=== PATIENT | female | born 1955 | race Caucasian/White ===

== ENCOUNTER 2017-03-03 07:07 | Day surgery (SDC) | payer BC ==
[2017-02-27 13:22] LABS: HEMATOCRIT 42.6 % (36.0-48.0)
[2017-02-27 13:36] LABS: BUN (BLOOD UREA NITROGEN) 10 MG/DL (6-23); CHLORIDE, SERUM 105 MMOL/L (96-112); CREATININE 0.96 MG/DL (0.55-1.02); GFR AFRICAN AMERICAN 73 ML/MIN (>=60); GFR NON AFRICAN AMERICAN 63 ML/MIN (>=60)
[2017-02-27 13:45] LABS: CO2 (CARBON DIOXIDE) 24 MMOL/L (24-34); GLUCOSE, SERUM 109 MG/DL (60-99); SODIUM, SERUM 137 MMOL/L (135-148)
[2017-02-27 15:37] LABS: BASOPHILS 0 %; EOSINOPHILS 1.6 %; EOSINOPHILS ABSOLUTE 0.16 10/3/uL (0.0-0.53); IMMATURE GRANULOCYTES 0.4 %; IMMATURE GRANULOCYTES ABSOLUTE 0.04 10/3/uL (0.0-0.11); LYMPHOCYTES 9.4 %; LYMPHOCYTES ABSOLUTE 0.94 10/3/uL (0.67-4.30); MEAN CORPUSCULAR HEMOGLOB 30.7 pg (26.0-34.0); MEAN PLATELET VOLUME 10.5 fL (9.2-13.0); MONOCYTES 5.3 %; MONOCYTES ABSOLUTE 0.53 10/3/uL (0.21-1.20); NEUTROPHILS 83.3 %; NEUTROPHILS ABSOLUTE 8.32 10/3/uL (2.02-8.40); PLATELET COUNT 231 10/3/uL (150-400); RBC DISTRIBUTION WIDTH 12.9 % (12.0-16.0)
[2017-02-27 15:42] LABS: MEAN CORPUS HGB CONC 33.3 g/dL (32.0-36.0); MEAN CORPUSCULAR VOLUME 92.1 fL (80-100); RED CELL COUNT 4.56 10/6/uL (4.0-5.6)
[2017-02-27 15:43] LABS: MANUAL DIFF NO %
--- NOTE | ~2017-03-03 | OP ---
Record Of Operation [facility] [address] [place]. [address] NAME: CLAU RHOADES : 53 STATUS : [facility]#: [id number] AGE: 61 ADM/REG DATE : 03/03/17 MR#: [id number] REPORT SERV DATE: 03/03/17 DICTATED BY: Leanne SUAREZ DATE: 03/03/17 REPORT STATUS : Draft TRANSCRIBED BY: MODL DATE: 03/03/17 DATE OF PROCEDURE: 03/03/2017 PREOPERATIVE DIAGNOSIS: Right ureteral obstruction due to metastatic breast cancer with chronic indwelling double-J stent. POSTOPERATIVE DIAGNOSIS: Right ureteral obstruction due to metastatic breast cancer with chronic indwelling double-J stent. PROCEDURES: Cystoscopy, cystolitholapaxy (small), removal of right double-J stent, right retrograde pyelogram, placement of right double-J stent. SURGEON: Leanne Suarez M.D. ANESTHESIA: General. COMPLICATIONS: Difficult stent removal. DRAINS: 7-Czech x 22 cm Contour double-J stent. BRIEF HISTORY: Ms Rhoades is a 61-year-old white female with metastatic breast cancer, who developed right ureteral obstruction. She developed right ureteral obstruction in August 2016. I changed her stent on 11/15/2016 and it had some encrustations then. Due to her therapy, she did not come in as planned for stent exchange, but developed urgency with incontinence around the first of January. My suspicion was this was probably a right ureteral stent. We have arranged for stent exchange. We discussed the risks of bleeding, infection, anesthesia, injury to adjacent organs, inability to access the ureter, need for continued monitoring and probable earlier stent exchange . There were no unanswered questions. DESCRIPTION OF PROCEDURE: Under excellent general anesthesia, the patient was prepped and draped in a standard lithotomy position. Cystoscopy was performed with the 30-degree lens and revealed a stent emanating from the right orifice. There was typical stent reaction and considerable encrustation on the distal end. I used the grasper to remove this stone and was unable to remove the stent until significant stone had been broken off and subsequently removed. This was equivalent to a bladder stone with manual cystolitholapaxy. Ultimately, I was able to remove enough stone from the distal coil to grasp the stent and remove it with mild difficulty. The incrustation extended up the ureter about a centimeter. I then inserted a 5-Czech open-ended catheter into the right ureter and performed a right retrograde pyelogram. There did seem to be continued mild dilatation of the collecting system, especially the upper pole. I inserted an angled wire through the 5-Czech open- ended catheter, removed the catheter, and then took a 7-Czech x 22 cm Contour double-J stent. I placed the proximal coil in the upper pole and the distal coil in the bladder. It seemed to be a reasonable fit and we will see how she does. She had some expected bleeding from the procedure. I plan to discharge Ms Rhoades as an outpatient with the following instructions. Record Of Operation [facility] [address] [facility] [place]. [address] NAME: CLAU RHOADES : 53 STATUS : [facility] PAT#: [id number] AGE: 61 ADM/REG DATE : 03/03/17 MR#: [id number] REPORT SERV DATE: 03/03/17 DICTATED BY: Leanne SUAREZ DATE: 03/03/17 REPORT STATUS : Draft TRANSCRIBED BY: PHILIP DATE: 03/03/17 DISCHARGE INSTRUCTIONS: 1. Home today. 2. Pyridium 200 mg one p.o. t.i.d. p.r.n. bladder pain, #15 with two refills. 3. Follow up in my office in two weeks to reassess symptoms. If she is much better from the incontinence standpoint, we will consider some sort of medication to reduce her risk of encrustation such as TheraLith XR and also consider more frequent stent changes. HIMANSHU/PHILIP Leanne Suarez M.D. / [phone] CC: Quoc Mendez M.D. [facility] Malik Lugo M.D.
[~2017-03-03 07:07] MED LIST: ABILIFY15 PO; ALEVE220 MG PO; ALLERGY REL1 OPH; AMOXIL500C PO; AROMASIN25 PO; ATIVAN2 MG PO; ATV1 PO; B150 PO; BEN25 PO; BUDEPRION150 MG PO; CHEMO-THERAPY INF; CIP5 PO; CO Q-10100 MG PO; COQ10100 MG OR; COSAMIN DS1 TAB; EZFE 200200 MG PO; FISH-EPA1000 MG PO; FLOMAX4 PO; HCTZ12.5 PO; IMOD PO; KLOR-CON M2020 MEQ PO; LAMICTAL ODT50 MG PO; LAMICTAL10 PO; LAMICTAL150 MG PO; LAMICTAL25 PO; LEVAQUIN5T PO; LOM PO; MAGGEL600 MG PO; METANX PO; MIRTAZAPINE7.5 MG PO; MSM500 MG PO; NORCO1 TA1 PO; OS500+D PO; OXYCOD PO; PRILO PO; PYR200 PO; REG5 PO; REM15 PO; RESTORIL30 MG PO; SYN.05 PO; TUMSROLL PO; VIT D; VITAMIN D1000 UNI1 PO; VITAMIN D31000 UNIT PO; VITC500 PO; WELL75 PO; ZOFRAN4 PO; [UNRECOGNIZED DRUG - OTHER]
[2017-05-05] MEDS ORDERED: POTASSIUM PO (15:27)
[2017-05-05] MEDS ORDERED: HARD NAILS PO (15:27)
[2017-05-05] MEDS ORDERED: [UNRECOGNIZED DRUG - OTHER] PO (15:28)
[2017-05-05] MEDS ORDERED: [UNRECOGNIZED DRUG - OTHER] PO (15:28)
[2017-05-05] MEDS ORDERED: VITA D PO (15:28)
[2017-05-05] MEDS ORDERED: ACET500CAP PO (15:29)
[2017-07-11] MEDS ORDERED: ENTOCORT3 PO (11:03)
[2017-07-11] MEDS ORDERED: UROCIT-K 5540 MG PO/LIQ (11:04)
[2017-07-11] MEDS ORDERED: THERALITH XR PO (11:07)
[2017-07-11] MEDS ORDERED: DITRO5 PO (11:10)
[2017-07-11] MEDS ORDERED: K500 PO (11:12)
[2017-07-11] MEDS ORDERED: PYR100B PO (11:14)
[2017-07-11] MEDS ORDERED: MAGOX4 PO (11:28)
[2017-07-11] MEDS ORDERED: MSM1000 MG PO (11:29)
[2017-07-11] MEDS ORDERED: FLOMAX4 PO (11:29)
[2017-07-11] MEDS ORDERED: ZOFRAN4 PO (11:30)
[2017-07-11] MEDS ORDERED: PEP20 PO (11:53)
== END 2017-03-03 12:53 | disposition home or self-care (01) ==
LOC: SDC 07:07
PROC: 0T768DZ Dilation of Right Ureter with Intraluminal Device, Via Natural or Artificial Opening Endoscopic (ICD-10-PCS; 2017-03-03)
PROC: BT1DZZZ Fluoroscopy of Right Kidney, Ureter and Bladder (ICD-10-PCS; 2017-03-03)
PROC: 0TCB8ZZ Extirpation of Matter from Bladder, Via Natural or Artificial Opening Endoscopic (ICD-10-PCS; principal; 2017-03-03 08:30)
DX: N13.5 Crossing vessel and stricture of ureter without hydronephrosis (principal); E03.9 Hypothyroidism, unspecified; F41.9 Anxiety disorder, unspecified; F31.9 Bipolar disorder, unspecified; Z88.2 Allergy status to sulfonamides; Z88.5 Allergy status to narcotic agent; Z88.8 Allergy status to other drugs, medicaments and biological substances; Z90.49 Acquired absence of other specified parts of digestive tract; Z90.710 Acquired absence of both cervix and uterus; Z90.711 Acquired absence of uterus with remaining cervical stump; Z85.3 Personal history of malignant neoplasm of breast; Z80.0 Family history of malignant neoplasm of digestive organs; Z98.890 Other specified postprocedural states; Z79.899 Other long term (current) drug therapy
CPT/HCPCS: 74420; 80048; 84132; 85025; 93005; A9270-GY; C1758; C1769; C2617; J2250; J2405; J3010; Q9967

== ENCOUNTER 2017-05-12 06:35 | Day surgery (SDC) | payer BC ==
[2017-05-07 12:37] LABS: HEMATOCRIT 38.7 % (36.0-48.0); HEMOGLOBIN 12.4 g/dL (12.0-16.0)
--- NOTE | ~2017-05-12 | OP ---
Record Of Operation [facility] [address] [place]. [address] NAME: CLAU RHOADES : 53 STATUS : [facility]#: [id number] AGE: 61 ADM/REG DATE : 05/12/17 MR#: [id number] REPORT SERV DATE: 05/12/17 DICTATED BY: Leanne SUAREZ DATE: 05/12/17 REPORT STATUS : Draft TRANSCRIBED BY: MODL DATE: 05/12/17 DATE OF PROCEDURE: 05/12/2017 PREOPERATIVE DIAGNOSIS: Right ureteral obstruction with chronic indwelling double-J stent. POSTOPERATIVE DIAGNOSIS: Right ureteral obstruction with chronic indwelling double-J stent, indeterminate left posterior bladder wall lesion. PROCEDURE: Cystoscopy, removal of right double-J stent, right retrograde pyelogram, double-J stent placement, bladder biopsy x2, fulguration, Reddy catheter placement. SURGEON: Leanne Suarez M.D. ANESTHESIA: General. COMPLICATIONS: None. DRAINS: 7-Burundian x 22 cm Contour double-J stent. BRIEF HISTORY: Ms. Rhoades is a 61-year-old white female, with a history of metastatic breast cancer, who developed right ureteral obstruction in the proximal aspect, managed with stent placement urgently 08/16/2016. Since that time, I have been changing her stent, most recently 03/03/2017. At that time, the stent had been in a little over three months, but was severely encrusted and required a cystolitholapaxy. I have suggested she and her that we probably need to change the stent every two months. The risks of bleeding, infection, anesthesia, injury to adjacent organs, inability to access ureter, place stent were discussed. She also brought up stent removal and I discussed with her that at some point in the future, we could try that under closely supervised conditions, although, she is unlikely to be able to become stent free. She has had some stent discomfort managed well with VESIcare, but her pharmacist recommended that she stop it recently, due to possible GI side effects. DESCRIPTION OF PROCEDURE: Under excellent general anesthesia, the patient was prepped and draped in standard lithotomy position. Cystoscopy was performed with a 30-degree lens, revealed a stent emanating from the right orifice. I also noticed a patch of erythema and friable tissue on the left posterior aspect of the bladder well away from her stent, while this could be stent related during a time of bladder drainage, it appeared distant enough that it could be an additional process. I used a flexible grasper to remove her stent and then placed a 5-Burundian open-ended ureteral catheter into the ureter and performed a right retrograde pyelogram. Her collecting system was reasonably decompressed. I inserted an angled Glidewire and then over the wire, placed a 7-Burundian x 22 cm Contour double-J stent, which coiled proximally and distally. I then used the rigid biopsy forceps to take two biopsies from this area of abnormal urothelium on the left side and then fulgurated these with the Bugbee electrode. I placed a 20-Burundian Reddy catheter and sent Ms. Rhoades to recovery with the following. Record Of Operation [facility] [address] [place]. [address] NAME: CLAU RHOADES : 53 STATUS : [facility] PAT#: [id number] AGE: 61 ADM/REG DATE : 05/12/17 MR#: [id number] REPORT SERV DATE: 05/12/17 DICTATED BY: Leanne SUAREZ DATE: 05/12/17 REPORT STATUS : Draft TRANSCRIBED BY: MODL DATE: 05/12/17 DISCHARGE PLAN: 1. Remove catheter today if urine clears. 2. Pyridium 200 mg one p.o. t.i.d. p.r.n. bladder pain, #15 with three refills. 3. Follow up in my office in one to two weeks to both review biopsy and results, and reassess her response to this stent, consider additional medications either anticholinergics if okayed by GI or Myrbetriq. ARNALDOD/MODL Leanne Suarez M.D. / [id number] CC: Quoc Mendez M.D. Walter Rose, M.D.
[~2017-05-12 06:35] MED LIST changes: +ACET500CAP PO; +HARD NAILS PO; +POTASSIUM PO; +VITA D PO; +[UNRECOGNIZED DRUG - OTHER] PO; +[UNRECOGNIZED DRUG - OTHER] PO
[2017-05-12 06:59] LABS: BASOPHILS 0.4 %; BASOPHILS ABSOLUTE 0.03 10/3/uL (0.0-0.16); EOSINOPHILS 6.9 %; EOSINOPHILS ABSOLUTE 0.47 10/3/uL (0.0-0.53); HEMOGLOBIN 12.2 g/dL (12.0-16.0); IMMATURE GRANULOCYTES 0.1 %; IMMATURE GRANULOCYTES ABSOLUTE 0.01 10/3/uL (0.0-0.11); LYMPHOCYTES 22.1 %; MEAN CORPUS HGB CONC 32.1 g/dL (32.0-36.0); MEAN CORPUSCULAR HEMOGLOB 28.8 pg (26.0-34.0); MEAN CORPUSCULAR VOLUME 89.8 fL (80-100); MEAN PLATELET VOLUME 9.7 fL (9.2-13.0); MONOCYTES ABSOLUTE 0.68 10/3/uL (0.21-1.20); NEUTROPHILS 60.5 %; PLATELET COUNT 169 10/3/uL (150-400); RBC DISTRIBUTION WIDTH 13.4 % (12.0-16.0); RED CELL COUNT 4.23 10/6/uL (4.0-5.6); WHITE BLOOD CELLS 6.8 10/3/uL (4.5-10.5)
[2017-05-12 07:05] LABS: MANUAL DIFF NO %
[2017-05-12 08:18] LABS: BUN (BLOOD UREA NITROGEN) 11 MG/DL (6-23); CHLORIDE, SERUM 111 MMOL/L (96-112); CO2 (CARBON DIOXIDE) 27 MMOL/L (24-34); CREATININE 0.95 MG/DL (0.55-1.02); GFR AFRICAN AMERICAN 74 ML/MIN (>=60); GFR NON AFRICAN AMERICAN 64 ML/MIN (>=60); GLUCOSE, SERUM 101 MG/DL (60-99); POTASSIUM, SERUM 4.1 MMOL/L (3.5-5.3); SODIUM, SERUM 140 MMOL/L (135-148)
[2017-07-11] MEDS ORDERED: ENTOCORT3 PO (11:03)
[2017-07-11] MEDS ORDERED: UROCIT-K 5540 MG PO/LIQ (11:04)
[2017-07-11] MEDS ORDERED: THERALITH XR PO (11:07)
[2017-07-11] MEDS ORDERED: DITRO5 PO (11:10)
[2017-07-11] MEDS ORDERED: K500 PO (11:12)
[2017-07-11] MEDS ORDERED: PYR100B PO (11:14)
[2017-07-11] MEDS ORDERED: MAGOX4 PO (11:28)
[2017-07-11] MEDS ORDERED: FLOMAX4 PO (11:29)
[2017-07-11] MEDS ORDERED: MSM1000 MG PO (11:29)
[2017-07-11] MEDS ORDERED: ZOFRAN4 PO (11:30)
[2017-07-11] MEDS ORDERED: PEP20 PO (11:53)
== END 2017-05-12 12:41 | disposition home or self-care (01) ==
LOC: SDC 06:35
PROC: BT1DZZZ Fluoroscopy of Right Kidney, Ureter and Bladder (ICD-10-PCS; 2017-05-12)
PROC: 0T768DZ Dilation of Right Ureter with Intraluminal Device, Via Natural or Artificial Opening Endoscopic (ICD-10-PCS; principal; 2017-05-12 07:45)
DX: T83.122A Displacement of indwelling ureteral stent, initial encounter (principal); N13.5 Crossing vessel and stricture of ureter without hydronephrosis; N32.9 Bladder disorder, unspecified
CPT/HCPCS: 74420; 80048; 85014; 85018; 85025; 88305; 93005; A9270-GY; C1758; C1769; C2617; J2250; J2405; J3010; Q9967

== ENCOUNTER 2017-05-19 08:24 | Day surgery (SDC) | payer BC ==
--- NOTE | ~2017-05-19 | EGD ---
EGD REPORT [facility] [address] [place] [address] NAME: BAMBI RHOADES : 53 STATUS : [facility] PAT#: [id number] AGE: 61 ADM/REG DATE : 05/19/17 MR#: [id number] REPORT SERV DATE: 05/19/17 DICTATED BY: FINA HELMS DATE: 05/19/17 REPORT STATUS : Draft TRANSCRIBED BY: [employer] DATE: 05/19/17 Endoscopy Center Patient Name: Bambi Rhoades Date of : 1955 Attending MD: FINA HELMS MD Procedure Date No Time: 05/19/2017 Procedure: Colonoscopy Indications: Clinically significant diarrhea of unexplained origin, Heme positive stool Referring MD: ROSE PATEL MD, J. P. DANIELA Medicines: as per anesthesia Complications: No immediate complications. Procedure: Pre-Anesthesia Assessment: - ASA Grade Assessment: III - A patient with severe systemic disease. After I obtained informed consent, the scope was passed under direct vision. Throughout the procedure, the patient's blood pressure, pulse, and oxygen saturations were monitored continuously. The [facility] [id number] was introduced through the anus and advanced to the cecum, identified by appendiceal orifice and ileocecal valve. The colonoscopy was performed without difficulty. The patient tolerated the procedure. The quality of the bowel preparation was adequate to identify polyps. Findings: The perianal and digital rectal examinations were normal. Internal hemorrhoids were found during endoscopy and were mild. Four biopsies were obtained in the rectum and in the ascending colon with cold forceps for histology. Impression: - Internal hemorrhoids. - Four biopsies were obtained in the rectum and in the ascending colon. Recommendation: - Await pathology results. - Repeat colonoscopy in 10 years for surveillance. Procedure Code(s): --- Professional --- 22424, Colonoscopy, flexible, proximal to splenic flexure; with biopsy, single or multiple Diagnosis Code(s): --- Professional --- K64.8, Other hemorrhoids R19.7, Diarrhea, unspecified EGD REPORT [facility] [address] [address] NAME: BAMBI RHOADES : 53 STATUS : [facility] PAT#: [id number] AGE: 61 ADM/REG DATE : 05/19/17 MR#: [id number] REPORT SERV DATE: 05/19/17 DICTATED BY: FINA HELMS. DATE: 05/19/17 REPORT STATUS : Draft TRANSCRIBED BY: [employer] DATE: 05/19/17 R19.5, Other fecal abnormalities CPT copyright 2013 [employer]. All rights reserved. The codes documented in this report are preliminary and upon button tacker review may be revised to meet current compliance requirements. FINA HELMS MD 05/19/2017 11:48 AM This report has been signed electronically. Number of Addenda: 0 Note Initiated On: 05/19/2017 11:07 AM Scope Withdrawal Time 0 hours 9 minutes 36 seconds [address] [id number]
--- NOTE | ~2017-05-19 | EGD ---
EGD REPORT [facility] [address] [place] [address] NAME: BAMBI RHOADES : 53 STATUS : [facility] PAT#: [id number] AGE: 61 ADM/REG DATE : 05/19/17 MR#: [id number] REPORT SERV DATE: 05/19/17 DICTATED BY: FINA HELMS DATE: 05/19/17 REPORT STATUS : Draft TRANSCRIBED BY: [employer] [facility] DATE: 05/19/17 Endoscopy Center Patient Name: Bambi Rhoades Date of : 1955 Attending MD: FINA HELMS MD Procedure Date No Time: 05/19/2017 Procedure: Upper GI endoscopy Indications: Heme positive stool, Diarrhea, Personal history of peptic ulcer disease Referring MD: ROSE REYNOSO MD, Leanne PATEL PDeni SUAREZ Medicines: as per anesthesia Complications: No immediate complications. Procedure: Pre-Anesthesia Assessment: - ASA Grade Assessment: III - A patient with severe systemic disease. After obtaining informed consent, the endoscope was passed under direct vision. Throughout the procedure, the patient's blood pressure, pulse, and oxygen saturations were monitored continuously. The GIF [id number] was introduced through the mouth, and advanced to the third part of duodenum. The upper GI endoscopy was accomplished without difficulty. The patient tolerated the procedure. Findings: The examined esophagus was normal. Localized mild inflammation characterized by erythema was found in the gastric antrum. Biopsies were taken with a cold forceps for histology. The cardia and gastric fundus were normal on retroflexion. The examined duodenum was normal. Biopsies were taken with a cold forceps for histology. Impression: - Normal esophagus. - Gastritis. Biopsied. - Normal examined duodenum. Biopsied. Recommendation: - Await pathology results. Procedure Code(s): --- Professional --- 31210, Esophagogastroduodenoscopy, flexible, transoral; with biopsy, single or multiple Diagnosis Code(s): --- Professional --- K29.70, Gastritis, unspecified, without bleeding R19.5, Other fecal abnormalities EGD REPORT [facility] [address] [id number] NAME: BAMBI RHOADES : 53 STATUS : [facility] PAT#: [id number] AGE: 61 ADM/REG DATE : 05/19/17 MR#: [id number] REPORT SERV DATE: 05/19/17 DICTATED BY: FINA HELMS. DATE: 05/19/17 REPORT STATUS : Draft TRANSCRIBED BY: [employer] DATE: 05/19/17 R19.7, Diarrhea, unspecified Z87.11, Personal history of peptic ulcer disease CPT copyright 2013 [employer]. All rights reserved. The codes documented in this report are preliminary and upon job specification writer review may be revised to meet current compliance requirements. FINA HELMS MD 05/19/2017 11:25 AM This report has been signed electronically. Number of Addenda: 0 Note Initiated On: 05/19/2017 11:06 AM [facility] [address] [id number]
[2017-07-11] MEDS ORDERED: ENTOCORT3 PO (11:03)
[2017-07-11] MEDS ORDERED: UROCIT-K 5540 MG PO/LIQ (11:04)
[2017-07-11] MEDS ORDERED: THERALITH XR PO (11:07)
[2017-07-11] MEDS ORDERED: DITRO5 PO (11:10)
[2017-07-11] MEDS ORDERED: K500 PO (11:12)
[2017-07-11] MEDS ORDERED: PYR100B PO (11:14)
[2017-07-11] MEDS ORDERED: MAGOX4 PO (11:28)
[2017-07-11] MEDS ORDERED: MSM1000 MG PO (11:29)
[2017-07-11] MEDS ORDERED: FLOMAX4 PO (11:29)
[2017-07-11] MEDS ORDERED: ZOFRAN4 PO (11:30)
[2017-07-11] MEDS ORDERED: PEP20 PO (11:53)
== END 2017-05-19 23:59 | disposition home or self-care (01) ==
LOC: DMU 08:24
PROVIDERS: Internal Medicine Gastroenterology
PROC: 0DB68ZX Excision of Stomach, Via Natural or Artificial Opening Endoscopic, Diagnostic (ICD-10-PCS; 2017-05-19)
PROC: 0DB98ZX Excision of Duodenum, Via Natural or Artificial Opening Endoscopic, Diagnostic (ICD-10-PCS; 2017-05-19)
PROC: 0DBK8ZX Excision of Ascending Colon, Via Natural or Artificial Opening Endoscopic, Diagnostic (ICD-10-PCS; principal; 2017-05-19 09:30)
PROC: 0DBP8ZX Excision of Rectum, Via Natural or Artificial Opening Endoscopic, Diagnostic (ICD-10-PCS; 2017-05-19 09:30)
DX: K29.50 Unspecified chronic gastritis without bleeding (principal); K52.832 Lymphocytic colitis; K64.8 Other hemorrhoids; E03.9 Hypothyroidism, unspecified; M85.80 Other specified disorders of bone density and structure, unspecified site; F41.9 Anxiety disorder, unspecified; F32.9 Major depressive disorder, single episode, unspecified; Z88.5 Allergy status to narcotic agent; Z88.2 Allergy status to sulfonamides; Z88.8 Allergy status to other drugs, medicaments and biological substances; Z85.3 Personal history of malignant neoplasm of breast; Z85.05 Personal history of malignant neoplasm of liver; Z90.711 Acquired absence of uterus with remaining cervical stump; Z90.49 Acquired absence of other specified parts of digestive tract; Z90.10 Acquired absence of unspecified breast and nipple; Z79.899 Other long term (current) drug therapy; Z98.890 Other specified postprocedural states
CPT/HCPCS: 88305; 88342